=== PATIENT | female | born 1965 | race Caucasian/White ===

== ENCOUNTER 2016-11-01 00:06 | Observation (INO) | payer OTHER ==
[2016-11-01] VITALS (7 sets, daily range): BP systolic 118–150; BP diastolic 70–86; PULSE 50–83; RESP 16–20; TEMP 97.5–98.8; O2SAT 93–99
[~2016-11-01] VITALS: Ht 165.1 cm; Wt 59.1 kg
[~2016-11-01 00:06] MED LIST: ALBU17I INH; CLON.1 PO; CLON1 PO; LURA20TA PO; SUBO8MIS SL; TRAZ100 PO
[2016-11-01] MEDS ORDERED: LURA40 PO (00:47)
[2016-11-01] MEDS ORDERED: CLON.1 PO (00:47)
[2016-11-01] MEDS ORDERED: SUBO8MIS SL (00:47)
[2016-11-01] MEDS ORDERED: TRAZ1TAB45 PO (00:47)
[2016-11-01] MEDS ORDERED: CLON1 PO (00:47)
[2016-11-01 01:46] LABS: AUTOMATED NEUTROPHIL # 5.7 TH/MM3 (1.8-7.7); BASOPHIL % 0.6 % (0.0-2.0); EOSINOPHIL # 0.1 TH/MM3 (0-0.4); EOSINOPHIL % 1.2 % (0.0-4.0); HEMATOCRIT 36.3 % (35.0-46.0); HEMO FLAGS DIFF FINAL; LYMPH % 21.4 % (9.0-44.0); LYMPHOCYTE # 1.7 TH/MM3 (1.0-4.8); MEAN CELL VOLUME 87.5 FL (80.0-100.0); MEAN CORPUSCULAR HEMOGLOBIN 29.9 PG (27.0-34.0); MEAN CORPUSCULAR HGB CONC 34.2 % (32.0-36.0); MONO % 6.7 % (0.0-8.0); NEUT % 70.1 % (16.0-70.0); PLATELET COUNT 280 TH/MM3 (150-450); RED BLOOD COUNT 4.15 MIL/MM3 (4.00-5.30); RED CELL DISTRIBUTION WIDTH 12.7 % (11.6-17.2); WHITE BLOOD COUNT 8.2 TH/MM3 (4.0-11.0)
[2016-11-01 02:12] LABS: ALT (GPT) 32 U/L (10-53); ANION GAP 15 MEQ/L (5-15); AST (GOT) 47 U/L (15-37); BICARBONATE 22.7 MEQ/L (21.0-32.0); BLOOD UREA NITROGEN 38 MG/DL (7-18); CHLORIDE 101 MEQ/L (98-107); GLOMERULAR FILTRATION RATE 23 ML/MIN (>89); POTASSIUM 3.3 MEQ/L (3.5-5.1); SODIUM (NA) 139 MEQ/L (136-145)
[2016-11-01 02:14] LABS: ALKALINE PHOSPHATASE 89 U/L (45-117); TOTAL BILIRUBIN ADULT 0.7 MG/DL (0.2-1.0)
[2016-11-01 02:16] LABS: ALCOHOL LESS THAN 3 MG/DL (0-5)
--- NOTE | 2016-11-01 02:22 | RADRPT ---
EXAM DATE/TIME: 11/01/2016 02:04 [place] COMPARISON: No previous studies available for comparison. INDICATIONS : Altered mental status. RADIATION DOSE: 56.35 CTDIvol (mGy) MEDICAL HISTORY : Hypertension. SURGICAL HISTORY : section. ENCOUNTER: Initial ACUITY: 1 day PAIN SCALE: 0/10 LOCATION: cranial TECHNIQUE: Multiple contiguous axial images were obtained of the head. Using automated exposure control and adj ustment of the mA and/or kV according to patient size, radiation dose was kept as low as reasonably a chievable to obtain optimal diagnostic quality images. DICOM format image data is available electro nically for review and comparison. FINDINGS: CEREBRUM: The ventricles are normal for age. No evidence of midline shift, mass lesion, hemorrhage or acute in farction. No extra-axial fluid collections are seen. POSTERIOR FOSSA: The cerebellum and brainstem are intact. The 4th ventricle is midline. The cerebellopontine angle i s unremarkable. EXTRACRANIAL: The visualized portion of the orbits is intact. SKULL: The calvaria is intact. No evidence of skull fracture. CONCLUSION: Negative noncontrast head CT. Nimesh Zavala MD on November 01, 2016 at 2:20 Board Certified Radiologist. This report was verified electronically.
[2016-11-01] MEDS ORDERED: SODIUM CHLOR 0.9% 1000 ML INJ 1,000 ML IV ONE (02:30)
[2016-11-01] MEDS ORDERED: POTASSIUM CHLORIDE 20 MEQ CONTROLLED RELEASE TAB PO ONE (02:30)
[2016-11-01] MEDS ORDERED: SODIUM CHLORIDE 0.9% FLUSH 10 ML FLUSH IVF PRN (04:15)
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
[2016-11-01] MEDS ORDERED: PERMETHRIN 5% CREAM 60 GM TOPICAL ONE (05:00)
[2016-11-01] MEDS ORDERED: ONDANSETRON HCL 4 MG/2 ML VIAL IVP PRN (05:00)
[2016-11-01] MEDS ORDERED: NALOXONE HCL 0.4 MG/ML AMP IV PRN (05:00)
[2016-11-01] MEDS ORDERED: SENNOSIDES 8.6 MG TAB PO PRN (05:00)
[2016-11-01] MEDS ORDERED: LACTULOSE SYRUP 20 GM/30 ML CUP PO PRN (05:00)
[2016-11-01] MEDS ORDERED: ACETAMINOPHEN 325 MG TAB PO PRN (05:00)
[2016-11-01] MEDS ORDERED: cloNIDine HCL 0.1 MG TAB PO PRN (06:15)
[2016-11-01] MEDS: NS + KCL 20 MEQ INJ 1,000 ML IV SCH ×2 (06:33→16:00)
[2016-11-01 08:18] LABS: BASOPHIL # 0.1 TH/MM3 (0-0.2); BASOPHIL % 1.9 % (0.0-2.0); EOSINOPHIL # 0.2 TH/MM3 (0-0.4); HEMATOCRIT 32.9 % (35.0-46.0); HEMO FLAGS DIFF FINAL; LYMPHOCYTE # 2.3 TH/MM3 (1.0-4.8); MEAN CELL VOLUME 89.1 FL (80.0-100.0); MEAN CORPUSCULAR HGB CONC 33.7 % (32.0-36.0); MONO % 6.4 % (0.0-8.0); NEUT % 50.7 % (16.0-70.0); PLATELET COUNT 210 TH/MM3 (150-450); RED BLOOD COUNT 3.69 MIL/MM3 (4.00-5.30); RED CELL DISTRIBUTION WIDTH 12.6 % (11.6-17.2)
[2016-11-01 08:44] LABS: BICARBONATE 20.6 MEQ/L (21.0-32.0); POTASSIUM 3.4 MEQ/L (3.5-5.1)
[2016-11-01] MEDS: SODIUM CHLORIDE 0.9% FLUSH 10 ML FLUSH IV FLUSH SCH ×2 (09:00→21:00)
[2016-11-01] MEDS: cloNIDine HCL 0.1 MG TAB PO SCH ×2 (09:00→23:36)
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
[2016-11-01] MEDS: LURASIDONE 40 MG TAB PO SCH (17:19)
[2016-11-02] MEDS: NS + KCL 20 MEQ INJ 1,000 ML IV SCH ×3 (02:30→21:39)
[2016-11-02 03:33] VITALS: BP 138/85; PULSE 51; RESP 16; TEMP 98.3; O2SAT 96
[2016-11-02 07:15] LABS: POTASSIUM 3.5 MEQ/L (3.5-5.1)
[2016-11-02 07:56] VITALS: BP 165/83; PULSE 47; RESP 18; TEMP 97.5; O2SAT 98
[2016-11-02] MEDS: cloNIDine HCL 0.1 MG TAB PO SCH ×2 (08:29→21:39)
[2016-11-02] MEDS: SODIUM CHLORIDE 0.9% FLUSH 10 ML FLUSH IV FLUSH SCH ×2 (08:29→21:00)
[2016-11-02] MEDS ORDERED: SUBO8MIS SL ×2 (08:45)
[2016-11-02] MEDS: REMOVE OLD PATCH T-DERMAL SCH (09:00)
[2016-11-02] MEDS: NICOTINE 21 MG/24 HR PATCH T-DERMAL SCH (09:00)
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
[2016-11-02 11:41] VITALS: BP 124/79; PULSE 67; RESP 18; TEMP 97.8; O2SAT 97
[2016-11-02 15:59] VITALS: BP 135/79; PULSE 60; RESP 20; TEMP 97.8; O2SAT 95
[2016-11-02] MEDS: LURASIDONE 40 MG TAB PO SCH (17:49)
[2016-11-02 19:52] VITALS: BP 149/91; PULSE 61; RESP 16; TEMP 98.2; O2SAT 98
[2016-11-02 23:28] VITALS: BP 163/95; PULSE 57; RESP 16; TEMP 98.1; O2SAT 97
[2016-11-03 03:19] VITALS: BP 110/69; PULSE 64; RESP 16; TEMP 98; O2SAT 96
[2016-11-03 08:22] VITALS: BP 144/71; PULSE 63; RESP 16; TEMP 97.6; O2SAT 98
[2016-11-03] MEDS: NICOTINE 21 MG/24 HR PATCH T-DERMAL SCH (08:50)
[2016-11-03] MEDS: NS + KCL 20 MEQ INJ 1,000 ML IV SCH (08:52)
[2016-11-03] MEDS: cloNIDine HCL 0.1 MG TAB PO SCH (08:52)
[2016-11-03] MEDS: SODIUM CHLORIDE 0.9% FLUSH 10 ML FLUSH IV FLUSH SCH (08:53)
[2016-11-03] MEDS: REMOVE OLD PATCH T-DERMAL SCH (08:53)
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
[2016-11-03 11:05] VITALS: BP 159/94
== END 2016-11-03 11:41 ==
LOC: NEPC 00:06 → NEDA 04:15 → NEPGCP 06:40
PROVIDERS: ADMIT Hospitalist; ATTEND Hospitalist
DX: N17.9 Acute kidney failure, unspecified (principal); I10 Essential (primary) hypertension; E87.6 Hypokalemia; B86 Scabies; F23 Brief psychotic disorder; T14.8 Other injury of unspecified body region; E83.42 Hypomagnesemia; E78.5 Hyperlipidemia, unspecified; F31.32 Bipolar disorder, current episode depressed, moderate
CPT/HCPCS: 70450; 80048; 80053; 80307; 84703; 85025; 96360; 96361; 99285; G0378; J3480; J7030

== ENCOUNTER 2016-11-03 11:42 | Inpatient (IN) | payer SELFPAY ==
[~2016-11-03 11:42] MED LIST changes: -ALBU17I INH; -CLON1 PO; -LURA20TA PO; +LURA40 PO; -TRAZ100 PO; +TRAZ1TAB45 PO
[2016-11-03 12:13] VITALS: BP 162/64; PULSE 90; RESP 18; TEMP 96.8; O2SAT 98
[2016-11-03] MEDS ORDERED: ACETAMINOPHEN 325 MG TAB PO PRN (15:00)
[2016-11-03] MEDS ORDERED: MAGNESIUM HYDROXIDE SUSP 30 ML CUP PO PRN (15:00)
[2016-11-03] MEDS ORDERED: LORazepam 2 MG/ML VIAL IM PRN ×2 (15:00)
[2016-11-03] MEDS ORDERED: ALUMINUM/MAGNESIUM/SIMETH 30 ML CUP PO PRN (15:00)
[2016-11-03] MEDS: NICOTINE 21 MG/24 HR PATCH T-DERMAL SCH (15:00)
[2016-11-03] MEDS ORDERED: LORazepam 0.5 MG TAB PO PRN (15:00)
[2016-11-03 18:24] VITALS: BP 108/104; PULSE 67; RESP 18; TEMP 97.1; O2SAT 100
[2016-11-03] MEDS ORDERED: cloNIDine HCL 0.1 MG TAB PO ONE (18:30)
[2016-11-03] MEDS: QUEtiapine FUMARATE 25 MG TAB PO SCH (20:19)
[2016-11-03] MEDS: LORazepam 1 MG TAB PO PRN (20:22)
[2016-11-04] MEDS: LORazepam 1 MG TAB PO PRN ×2 (05:29→11:46)
[2016-11-04 06:15] VITALS: BP 166/105; PULSE 67; RESP 16; TEMP 97.3; O2SAT 97
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
[2016-11-04] MEDS ORDERED: cloNIDine HCL 0.2 MG TAB PO ONE (09:00)
[2016-11-04] MEDS: REMOVE OLD NICODERM (NICOTINE) PATCH T-DERMAL SCH (09:00)
[2016-11-04] MEDS: NICOTINE 21 MG/24 HR PATCH T-DERMAL SCH (09:17)
[2016-11-04] MEDS: QUEtiapine FUMARATE 25 MG TAB PO SCH ×2 (09:17→21:20)
[2016-11-04] MEDS ORDERED: LORazepam 1 MG TAB PO PRN (12:00)
[2016-11-04] MEDS ORDERED: LORazepam 2 MG/ML VIAL IV PUSH PRN ×4 (12:00)
[2016-11-04] MEDS ORDERED: ONDANSETRON ODT 4 MG TAB PO PRN (12:00)
[2016-11-04] MEDS ORDERED: FLUMAZENIL 0.5 MG/5 ML VIAL IV PUSH PRN (12:00)
[2016-11-04] MEDS ORDERED: LOPERAMIDE HCL 2 MG CAP PO PRN (12:00)
[2016-11-04 12:29] LABS: ANION GAP 6 MEQ/L (5-15); BICARBONATE 32.8 MEQ/L (21.0-32.0); BLOOD UREA NITROGEN 16 MG/DL (7-18); CHLORIDE 102 MEQ/L (98-107); GLOMERULAR FILTRATION RATE 67 ML/MIN (>89); HDL CHOLESTEROL 58.7 MG/DL (40.0-60.0); LDL CHOLESTEROL 109 MG/DL (0-99); SODIUM (NA) 141 MEQ/L (136-145)
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
[2016-11-04] MEDS ORDERED: POTASSIUM CHLORIDE 10 MEQ CONTROLLED RELEASE TAB PO ONE (13:00)
[2016-11-04] MEDS: LORazepam 2 MG TAB PO PRN ×2 (14:19→22:24)
[2016-11-04 15:25] LABS: AUTOMATED NEUTROPHIL # 3.5 TH/MM3 (1.8-7.7); BASOPHIL % 0.9 % (0.0-2.0); EOSINOPHIL # 0.1 TH/MM3 (0-0.4); EOSINOPHIL % 2.2 % (0.0-4.0); HEMATOCRIT 38.6 % (35.0-46.0); HEMO FLAGS DIFF FINAL; LYMPH % 28.1 % (9.0-44.0); LYMPHOCYTE # 1.5 TH/MM3 (1.0-4.8); MEAN CELL VOLUME 89.7 FL (80.0-100.0); MEAN CORPUSCULAR HEMOGLOBIN 29.2 PG (27.0-34.0); MEAN CORPUSCULAR HGB CONC 32.6 % (32.0-36.0); MONO % 4.3 % (0.0-8.0); NEUT % 64.5 % (16.0-70.0); PLATELET COUNT 257 TH/MM3 (150-450); RED BLOOD COUNT 4.31 MIL/MM3 (4.00-5.30); WHITE BLOOD COUNT 5.4 TH/MM3 (4.0-11.0)
[2016-11-04] MEDS: cloNIDine HCL 0.1 MG TAB PO PRN (17:02)
[2016-11-04 18:23] VITALS: BP 161/104; PULSE 80; RESP 17; TEMP 97.9; O2SAT 97
[2016-11-04] MEDS ORDERED: cloNIDine HCL 0.2 MG TAB PO SCH (21:00)
[2016-11-04] MEDS: cloNIDine HCL 0.1 MG TAB PO SCH (21:20)
[2016-11-05] MEDS: LORazepam 2 MG TAB PO PRN (02:50)
[2016-11-05] MEDS: cloNIDine HCL 0.1 MG TAB PO PRN (02:51)
[2016-11-05 03:00] VITALS: BP 168/126; PULSE 71
[2016-11-05 05:33] VITALS: BP 130/83; PULSE 57; RESP 16; TEMP 97.6; O2SAT 99
[2016-11-05] MEDS: NICOTINE 21 MG/24 HR PATCH T-DERMAL SCH (09:00)
[2016-11-05] MEDS: REMOVE OLD NICODERM (NICOTINE) PATCH T-DERMAL SCH (09:00)
[2016-11-05] MEDS: cloNIDine HCL 0.1 MG TAB PO SCH (09:46)
[2016-11-05] MEDS: QUEtiapine FUMARATE 25 MG TAB PO SCH (09:47)
[2016-11-05] MEDS ORDERED: CLON.1 PO (10:26)
[2016-11-05] MEDS ORDERED: QUET1TAB7 PO (10:26)
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
[2016-11-05 16:04] LABS: HEMOGLOBIN A1a 1.5 %; HEMOGLOBIN A1b 1.8 %; HEMOGLOBIN Ao 85.3 %; HEMOGLOBIN LA1C 1.4 %; HEMOGLOBIN P3 3.6 %
== END 2016-11-05 11:50 | disposition left against medical advice (07) | DRG 885 ==
LOC: H260 11:46
PROVIDERS: ADMIT Psychiatry & Neurology Psychiatry; ATTEND Psychiatry & Neurology Psychiatry
DX: F23 Brief psychotic disorder (principal); F11.20 Opioid dependence, uncomplicated; I10 Essential (primary) hypertension; D64.9 Anemia, unspecified; E78.5 Hyperlipidemia, unspecified; F17.210 Nicotine dependence, cigarettes, uncomplicated; E87.6 Hypokalemia
CPT/HCPCS: 80048; 80061; 83036; 85025